=== PATIENT | female | born 1955 | race Caucasian/White ===

== ENCOUNTER → 2019-03-13 | Outpatient (CLI) | payer MEDICARE, BC ==
--- NOTE | 2019-03-13 17:16 | MAM ---
EXAM DESCRIPTION: 3D Screening BILATERAL : Digital Mammography. CLINICAL HISTORY: 63 years Female SCREEN . No complaints. No personal or family history of breast cancer. Menarche age 12. Childbirth age 17. Partial hysterectomy age 30. HRT 5 or more years ago.. Lifetime risk of developing breast cancer (Tyrer-Cuzick model)(%): 4.2. COMPARISON: None available. No prior reports available. TECHNIQUE: Bilateral CC and MLO projection full-field images, digital tomosynthesis mammographic technique. Bilateral digital 2-D full-field MLO images. CAD not available for tomosynthesis or 2-D images. FINDINGS: The breast parenchymal density pattern is: Almost entirely fatty. No skin thickening or nipple retraction. Right axillary lymph node. Mass density in the third left breast 9 cm from the nipple, difficult to localize on the CC image.. No new focal, stellate mass or density, focal asymmetry , and no suspicious microcalcifications right breast. IMPRESSION: Focal asymmetry left breast BI-RADS CATEGORY: 0 - INCOMPLETE- Need additional imaging evaluation. FOLLOW-UP: Recall for additional imaging: Left breast LM projection full-field 2-D and tomosynthesis images. Directed left breast ultrasound.. Written communication concerning the IMPRESSION and Follow-up, will be mailed to the patient and referring health care provider. Electronically signed by: Ruddy Velasco MD 03/13/2019 5:14 PM LABORATORY GENETICIST
== END ==
LOC: MAMMO 09:00
PROVIDERS: ATTEND Emergency Medicine
DX: Z12.31 Encounter for screening mammogram for malignant neoplasm of breast (principal)

== ENCOUNTER → 2019-03-28 | Outpatient (CLI) | payer MEDICARE, BC ==
--- NOTE | 2019-03-29 11:45 | US ---
EXAM DESCRIPTION: 3D Diagnostic, Left (accession [id number]), Breast,Left (accession [id number]): CLINICAL HISTORY: 63 yearsFemaleABNORMAL MAMMOGRAM . Focal asymmetry mid left breast. No personal or family history of breast cancer. Menarche age 12. Childbirth age 17. Menopausal age unknown. HRT 5 or more years ago Lifetime risk of developing breast cancer (Tyrer-Cuzick model)(%): 4.2. COMPARISON: Bilateral screening digital breast tomosynthesis March 13. TECHNIQUE: Left breast LM projection full-field images, digital tomosynthesis technique. Left breast 2-D digital full-field images: LM and CC projections. CAD not available. Transcutaneous scanning of the left breast utilizing hutchinson-scale and Doppler modes. Scanning performed by the pockets and pieces necktie operator and Dr. Velasco. FINDINGS: The breast parenchymal density pattern is: Almost entirely fatty No skin thickening or nipple retraction small focal asymmetry visualized middle third left breast 9 cm from the nipple. Not well localized on the CC images. No mass density on the tomosynthesis images.No new focal, stellate mass or density, focal asymmetry , and no suspicious microcalcifications left breast since the screening study. Ultrasound: Scanning left breast 3:00 and 9:00 position 7 cm from the nipple. Mostly fatty tissues with minimal fibroglandular tissues. No dominant solid mass or distinct cyst. No parenchymal edema or large calcifications. No overlying skin changes. IMPRESSION: Benign exam. BIRAD CATEGORY: 2 BENIGN FINDINGS. RECOMMENDATIONS: FOLLOW UP: Return to routine digital bilateral mammographic screening, one year interval from March 2019. Written communication explaining the IMPRESSION and follow-up, will be mailed to the patient and referring health care provider. The FINDINGS and the FOLLOW-UP plan were reviewed in person with the patient after the examination. According to the [employer], yearly mammograms are recommended starting at age 40 and continuing as long as a woman is in good health. Any breast change noted on a breast self-exam should be reported promptly to the patient's healthcare provider. Breast MRI is recommended for women with an approximately 20-25% or greater lifetime risk of breast cancer, including women with a strong family history of breast or ovarian cancer and women who have been treated for Hodgkin's disease. A negative mammographic report should not delay tissue diagnosis in patients with significant clinical history or physical findings. Extremely dense breast tissue limits the sensitivity of digital mammography. Electronically signed by: Ruddy Velasco MD 03/29/2019 11:43 AM [facility]
== END ==
LOC: MAMMO 09:33
PROVIDERS: ATTEND Emergency Medicine
DX: R92.8 Other abnormal and inconclusive findings on diagnostic imaging of breast (principal)
CPT/HCPCS: 76641; 77065; G0279